=== PATIENT | male | born 2000 | race Two or more races ===

== ENCOUNTER 2020-12-14 11:22 | Inpatient (IN) | payer MEDICAID ==
[~2020-12-14] VITALS: Ht 165.1 cm; Wt 76.0 kg
[2020-12-14 11:51] LABS: BASOPHILS % (AUTO) 0.3 % (0.0-2.0); EOSINOPHILS % (AUTO) 2.7 % (1.0-6.0); HEMATOCRIT 45.5 % (41-53); LYMPHOCYTES # (AUTO) 1.8 K/uL (1.0-4.8); LYMPHOCYTES % (AUTO) 21.6 % (22.0-44.0); MEAN CORPUSCULAR HEMOGLOBIN 30.1 pg (26.0-34.0); MEAN CORPUSCULAR VOLUME 91 fL (80-100); MONOCYTES # (AUTO) 0.7 K/uL (0.1-1.0); NEUTROPHILS # (AUTO) 5.7 K/uL (1.8-7.7); NEUTROPHILS % (AUTO) 67.4 % (40.0-70.0); PLATELET COUNT (AUTO) 237 K/uL (150-450); RED BLOOD CELL COUNT(AUTO) 4.98 MIL/uL (4.50-5.90); RED CELL DISTRIBUTION WIDTH 12.8 % (11.5-14.5)
[2020-12-14 12:02] LABS: ANION GAP 7 mmol/L (8-16); CALCIUM, TOTAL 9.2 mg/dL (8.8-10.5); CARBON DIOXIDE 28 mmol/L (22-29); CHLORIDE 104 mmol/L (98-107); CREATININE 0.72 mg/dL (0.60-1.30); GLOMERULAR FILTR. RATE CALC > 60 mL/min (>60); GLUCOSE,RANDOM 99 mg/dL (70-110); POTASSIUM 4.4 mmol/L (3.5-5.1); SODIUM SERUM 139 mmol/L (136-145); UREA NITROGEN, BLOOD 11 mg/dL (7-18)
[2020-12-14 12:09] LABS: ALANINE AMINOTRANSFERASE 34 U/L (12-78); ALBUMIN 4.6 g/dL (3.4-5.0); ALKALINE PHOSPHATASE 140 U/L (46-116); ASPARTATE AMINOTRANSFERASE 26 U/L (15-37); BILIRUBIN,TOTAL 0.4 mg/dL (0.1-1.0); TOTAL PROTEIN, SERUM 7.7 g/dL (6.4-8.2)
[2020-12-14] MEDS ORDERED: LORazepam 2 MG TABLET PO PRN ×2 (13:00→18:15)
[2020-12-14] MEDS ORDERED: ACETAMINOPHEN 325 MG TABLET PO PRN (13:00)
[2020-12-14 13:34] LABS: AMPHET/METH SCREEN,URINE NEGATIVE (NEGATIVE); BARBITURATE SCREEN, URINE NEGATIVE (NEGATIVE); BENZODIAZEPINES SCREEN,URINE NEGATIVE (NEGATIVE); CANNABINOID SCREEN,URINE NEGATIVE (NEGATIVE); COCAINE SCREEN,URINE NEGATIVE (NEGATIVE); METHADONE SCREEN, URINE NEGATIVE (NEGATIVE); OPIATE SCREEN,URINE NEGATIVE (NEGATIVE)
[2020-12-14 13:35] LABS: PHENCYCLIDINE SCREEN,URINE NEGATIVE (NEGATIVE)
[2020-12-14 14:03] LABS: CHOL/HDL RATIO 2.9 (4.2-7.3); CHOLESTEROL 172 mg/dL (131-200); FREE T4 (FREE THYROXINE) 1.08 ng/dL (0.76-1.46); HDL CHOLESTEROL 59 mg/dL (40-60); LDL CHOL (CALC.) 100 mg/dL (0-130); THYROID STIMULATING HORMONE 1.09 uIU/mL (0.36-3.74); TRIGLYCERIDES 63 mg/dL (15-150)
[2020-12-14] MEDS ORDERED: ZOLPIDEM TARTRATE 5 MG TABLET PO PRN (14:45)
[2020-12-14 14:51] LABS: COVID AG,FIA SOURCE NASOPHARYNGEAL
[2020-12-14] MEDS ORDERED: HALOPERIDOL 5 MG TABLET PO PRN (18:15)
[2020-12-14 20:12] VITALS: BP 112/60
[2020-12-15 08:00] VITALS: BP 101/56
[2020-12-15] MEDS ORDERED: ACETAMINOPHEN 325 MG TABLET PO PRN (11:45)
[2020-12-15] MEDS ORDERED: ONDANSETRON HCL 4 MG TABLET PO PRN (11:45)
[2020-12-15] MEDS ORDERED: GuaiFENesin/D-METHORPHAN [SUGAR-FREE] 200-20MG/10 ML SYRUP UDCUP PO PRN (11:45)
[2020-12-15] MEDS ORDERED: LOPERAMIDE HCL 2 MG CAPSULE PO PRN (11:45)
[2020-12-15] MEDS ORDERED: IBUPROFEN 400 MG TABLET PO PRN (11:45)
[2020-12-15] MEDS ORDERED: CloNIDine HCL 0.1 MG TABLET PO PRN (11:45)
[2020-12-15] MEDS ORDERED: ALBUTEROL SULFATE HFA 90 MCG/PUFF 8 GM INHALER IH PRN (11:45)
[2020-12-15] MEDS ORDERED: MAGNESIUM HYDROXIDE SUSPENSION 30 ML UDCUP PO PRN (11:45)
[2020-12-15] MEDS ORDERED: NICOTINE 14 MG/24 HOUR PATCH TD PRN (11:45)
[2020-12-15] MEDS ORDERED: PETROLATUM,WHITE 28 GM JELLY TP PRN (11:45)
[2020-12-15] MEDS ORDERED: DOCUSATE SODIUM 100 MG CAPSULE PO PRN (11:45)
[2020-12-15] MEDS ORDERED: MAG HYDROX/AL HYDROX/SIMETH ES 30 ML SUSPENSION UDCUP PO PRN (11:45)
[2020-12-15] MEDS: RisperiDONE 1 MG TABLET PO SCH ×2 (12:40→20:30)
[2020-12-15] MEDS: ZOLPIDEM TARTRATE 10 MG TABLET PO PRN (21:22)
[2020-12-16 06:42] LABS: BASOPHILS % (AUTO) 0.5 % (0.0-2.0); EOSINOPHILS % (AUTO) 3.3 % (1.0-6.0); HEMATOCRIT 41.9 % (41-53); LYMPHOCYTES # (AUTO) 2.2 K/uL (1.0-4.8); MEAN CORPUSCULAR HEMOGLOBIN 30.4 pg (26.0-34.0); MEAN CORPUSCULAR HGB CONC 33.4 G/dL (31.0-37.0); MEAN CORPUSCULAR VOLUME 91 fL (80-100); MONOCYTES # (AUTO) 0.5 K/uL (0.1-1.0); NEUTROPHILS # (AUTO) 4.1 K/uL (1.8-7.7); NEUTROPHILS % (AUTO) 58.2 % (40.0-70.0); PLATELET COUNT (AUTO) 206 K/uL (150-450); RED BLOOD CELL COUNT(AUTO) 4.61 MIL/uL (4.50-5.90); RED CELL DISTRIBUTION WIDTH 12.7 % (11.5-14.5)
[2020-12-16 08:00] VITALS: BP 110/79
[2020-12-16] MEDS: RisperiDONE 1 MG TABLET PO SCH ×2 (08:09→20:12)
[2020-12-16 16:11] VITALS: BP 102/62
[2020-12-16] MEDS: ZOLPIDEM TARTRATE 10 MG TABLET PO PRN (20:15)
[2020-12-17 06:33] VITALS: BP 126/77
[2020-12-17 08:00] VITALS: BP 101/49
[2020-12-17] MEDS: RisperiDONE 1 MG TABLET PO SCH (09:03)
[2020-12-17] MEDS ORDERED: RISP1TAB48 PO (13:22)
== END 2020-12-17 15:05 | disposition home or self-care (01) | DRG 751 ==
LOC: EMS 11:27 → 3EC 16:49
PROVIDERS: ADMIT Psychiatry & Neurology Child & Adolescent Psychiatry; ATTEND Psychiatry & Neurology Child & Adolescent Psychiatry
DX: F29 Unspecified psychosis not due to a substance or known physiological condition (principal); I95.9 Hypotension, unspecified; G44.209 Tension-type headache, unspecified, not intractable; R10.13 Epigastric pain; Z20.822 Contact with and (suspected) exposure to COVID-19
CPT/HCPCS: 70450; 80053; 80061; 84439; 84443; 85025; 99285; G0480

== ENCOUNTER 2025-05-10 13:03 | Inpatient (IN) | payer MEDICAID, OTHER ==
[~2025-05-10] VITALS: Ht 165.1 cm; Wt 76.2 kg
[~2025-05-10 13:03] MED LIST: RISP1TAB48 PO
[2025-05-10] MEDS ORDERED: PALI39DI IM (13:16)
[2025-05-10] MEDS ORDERED: FLUO20SO24 PO (13:16)
[2025-05-10 13:59] LABS: APPEARANCE,URINE CLEAR (CLEAR); GLUCOSE, URINE (UA) NEGATIVE (NEGATIVE); LEUKOCYTE ESTERASE ,URINE NEGATIVE (NEGATIVE); NITRATE,URINE NEGATIVE (NEGATIVE); OCCULT BLOOD,URINE NEGATIVE (NEGATIVE); PH,URINE DRUG SCREEN 5.5 (5.0-8.0); SPECIFIC GRAVITIY, URINE 1.028 (1.003-1.030)
[2025-05-10 14:05] LABS: ALCOHOL, URINE DRUG SCREEN NEGATIVE (NEGATIVE); AMPHET/METH SCREEN,URINE NEGATIVE (NEGATIVE); BARBITURATE SCREEN, URINE NEGATIVE (NEGATIVE); CANNABINOID SCREEN,URINE NEGATIVE (NEGATIVE); COCAINE SCREEN,URINE NEGATIVE (NEGATIVE); METHADONE SCREEN, URINE NEGATIVE (NEGATIVE)
[2025-05-10 14:44] LABS: PLATELET COUNT (AUTO) 235 K/uL (150-450); RED BLOOD CELL COUNT(AUTO) 5.19 MIL/uL (4.50-5.90); RED CELL DISTRIBUTION WIDTH 12.9 % (11.5-14.5); WHITE BLOOD COUNT (AUTO) 9.7 K/uL (4.5-11.0)
[2025-05-10 14:50] LABS: CALCIUM, TOTAL 9.1 mg/dL (8.8-10.5); CREATININE 0.95 mg/dL (0.60-1.30); GLOMERULAR FILTR. RATE CALC > 60 mL/min (>60); GLUCOSE,RANDOM 70 mg/dL (70-110); SODIUM SERUM 133 mmol/L (136-145); UREA NITROGEN, BLOOD 14 mg/dL (7-18)
[2025-05-10 15:45] LABS: COVID AG,FIA SOURCE NASAL SWAB
[2025-05-10 17:15] LABS: SARS-COV2 (COVID) ANTIGEN,FIA Negative (Negative)
[2025-05-10 18:48] VITALS: BP 122/83; PULSE 84; RESP 18; TEMP 97.4; O2SAT 99
[2025-05-10 20:33] VITALS: BP 112/76; PULSE 80; RESP 18; TEMP 97.7; O2SAT 98
[2025-05-11] MEDS ORDERED: BACITRACIN 28 GM OINTMENT TP PRN (07:15)
[2025-05-11] MEDS ORDERED: ALBUTEROL SULFATE HFA 90 MCG/PUFF 8 GM INHALER IH PRN (07:15)
[2025-05-11] MEDS ORDERED: MAGNESIUM HYDROXIDE SUSPENSION 30 ML UDCUP PO PRN (07:15)
[2025-05-11] MEDS ORDERED: MAG HYDROX/ALUMINUM HYD/SIMETH ES 30 ML SUSPENSION UDCUP PO PRN (07:15)
[2025-05-11] MEDS ORDERED: LOPERAMIDE HCL 2 MG CAPSULE PO PRN (07:15)
[2025-05-11] MEDS ORDERED: ONDANSETRON 4 MG TABLET PO PRN (07:15)
[2025-05-11] MEDS ORDERED: ACETAMINOPHEN 325 MG TABLET PO PRN (07:15)
[2025-05-11] MEDS ORDERED: IBUPROFEN 600 MG TABLET PO PRN (07:15)
[2025-05-11] MEDS ORDERED: OMEPRAZOLE 20 MG CAPSULE PO PRN (07:15)
[2025-05-11] MEDS ORDERED: BENZOCAINE/MENTHOL [CEPACOL] LOZENGE PO PRN (07:15)
[2025-05-11] MEDS ORDERED: DOCUSATE SODIUM 100 MG CAPSULE PO PRN (07:15)
[2025-05-11] MEDS ORDERED: PETROLATUM,WHITE 28 GM JELLY TP PRN (07:15)
[2025-05-11 08:45] LABS: PLATELET COUNT (AUTO) 215 K/uL (150-450); RED BLOOD CELL COUNT(AUTO) 5.13 MIL/uL (4.50-5.90); RED CELL DISTRIBUTION WIDTH 12.9 % (11.5-14.5); WHITE BLOOD COUNT (AUTO) 8.0 K/uL (4.5-11.0)
[2025-05-11 09:05] LABS: ASPARTATE AMINOTRANSFERASE 24 U/L (15-37); CALCIUM, TOTAL 9.0 mg/dL (8.8-10.5); CHOL/HDL RATIO 3.7 (4.2-7.3); CREATININE 0.81 mg/dL (0.60-1.30); GLOMERULAR FILTR. RATE CALC > 60 mL/min (>60); GLUCOSE,RANDOM 152 mg/dL (70-110); LDL CHOL (CALC.) 108 mg/dL (0-130); SODIUM SERUM 138 mmol/L (136-145); TOTAL PROTEIN, SERUM 8.0 g/dL (6.4-8.2); UREA NITROGEN, BLOOD 9 mg/dL (7-18)
[2025-05-11 09:32] VITALS: BP 107/78; PULSE 88; RESP 18; TEMP 97.8; O2SAT 97
[2025-05-11] MEDS: LITHIUM CARBONATE 300 MG CAPSULE PO SCH (17:13)
[2025-05-11] MEDS: DIVALPROEX SODIUM 500 MG DR TABLET PO SCH (17:13)
[2025-05-11 20:03] VITALS: BP 108/73; PULSE 66; RESP 16; TEMP 97.4; O2SAT 97
[2025-05-12 11:18] VITALS: BP 111/70; PULSE 71; RESP 16; TEMP 97.8; O2SAT 100
[2025-05-12 21:55] VITALS: BP 101/59; PULSE 63; RESP 18; TEMP 98.1; O2SAT 100
[2025-05-13 10:22] VITALS: BP 90/70; PULSE 80; RESP 17; TEMP 97.9; O2SAT 98
[2025-05-13 20:03] VITALS: BP 113/63; PULSE 62; RESP 16; TEMP 97.9; O2SAT 100
[2025-05-14 08:58] VITALS: BP 110/67; PULSE 84; RESP 18; TEMP 97.8; O2SAT 96
[2025-05-14] MEDS ORDERED: FLUO-418 PO (16:24)
[2025-05-14 21:48] VITALS: BP 105/63; PULSE 67; RESP 16; TEMP 98
[2025-05-15 08:47] LABS: VALPROIC ACID 61.0 mcg/mL (50-100)
[2025-05-15 09:35] VITALS: BP 109/70; PULSE 60; RESP 18; TEMP 97.8; O2SAT 100
[2025-05-15 20:34] VITALS: BP 108/68; PULSE 72; RESP 17; TEMP 97.7; O2SAT 98
[2025-05-15] MEDS: ZOLPIDEM TARTRATE 10 MG TABLET PO PRN (21:20)
[2025-05-16 08:43] VITALS: BP 122/75; PULSE 95; RESP 18; TEMP 97.7; O2SAT 100
[2025-05-16 20:37] VITALS: BP 95/60; PULSE 66; RESP 18; TEMP 97.7; O2SAT 99
[2025-05-17 10:08] VITALS: BP 120/71; PULSE 96; RESP 16; TEMP 97.4; O2SAT 99
[2025-05-17] MEDS ORDERED: LITH300C3 PO (11:08)
[2025-05-17] MEDS ORDERED: DIVA-112 PO (11:09)
[2025-05-17] MEDS: PALIPERIDONE PALMITATE 234 MG/1.5 ML SYRINGE IM ONE (12:27)
== END 2025-05-17 17:18 | disposition home or self-care (01) | DRG 750 ==
LOC: EMS 14:18 → 3EC 17:30
PROVIDERS: ADMIT Psychiatry & Neurology Psychiatry; ATTEND Psychiatry & Neurology Psychiatry
DX: F20.9 Schizophrenia, unspecified (principal); E87.1 Hypo-osmolality and hyponatremia; F41.9 Anxiety disorder, unspecified; G47.00 Insomnia, unspecified; Z91.148 Patient's other noncompliance with medication regimen for other reason
CPT/HCPCS: 80048; 80053; 80061; 80164; 80178; 80307; 81003; 83036; 84436; 84439; 85025; 99285; G0480